=== PATIENT | male | born 1940 | race Caucasian/White ===

== ENCOUNTER → 2021-05-05 | Outpatient (CLI) | payer MEDICARE ==
--- NOTE | 2021-05-05 12:45 | US ---
EXAMINATION TYPE: US venous doppler duplex LE DATE OF EXAM: 05/05/2021 11:40 AM COMPARISON: NONE CLINICAL HISTORY: M79.669 CALF PAIN. Right calf pain SIDE PERFORMED: Bilateral TECHNIQUE: The lower extremity deep venous system is examined utilizing real time linear array sonog robert with graded compression, doppler sonography and color-flow sonography. VESSELS IMAGED: Common Femoral Vein Deep Femoral Vein Greater Saphenous Vein * Femoral Vein Popliteal Vein Small Saphenous Vein * Proximal Calf Veins (* superficial vessels) Bakers cyst in the right popliteal fossa with debris measuring 3.6x2.2x1.6cm Right Leg: Negative for DVT Left Leg: Negative for DVT IMPRESSION: No evidence for DVT at this time.
== END | disposition home or self-care (01) ==
LOC: RADUSWWP 11:36
PROVIDERS: ATTEND Internal Medicine
DX: M79.669 Pain in unspecified lower leg (principal)
CPT/HCPCS: 93970